=== PATIENT | male | born 1985 | race Two or more races ===

== ENCOUNTER 2017-11-21 20:13 | Emergency (ER) | payer SELFPAY ==
[~2017-11-21] VITALS: Ht 172.7 cm; Wt 68.0 kg
[2017-11-21] VITALS (9 sets, daily range): BP systolic 118–161; BP diastolic 45–92
[2017-11-21] MEDS ORDERED: NKM (20:17)
[2017-11-21] MEDS ORDERED: Morphine Sulfate 4mg/ml Inj IM ONE (20:30)
--- NOTE | 2017-11-21 20:31 | Emergency Room Report ---
History of Present Illness General Chief Complaint: Upper Extremity Injury Source: Patient Present Illness HPI 32-year-old male, presenting with right shoulder pain, after a fall. The complaining of severe pain to right shoulder. Cannot move right shoulder. No head trauma no LOC Allergies: Coded Allergies: No Known Allergies (Unverified , 11/21/17) Patient History Past Medical History: see triage record Past Surgical History: none Pertinent Family History: none Reviewed Nursing Documentation: PMH: Agreed, PSxH: Agreed Nursing Documentation-PMH Past Medical History: No Stated History Review of Systems All Other Systems: negative except mentioned in HPI Physical Exam Vital Signs Date Time Temp Pulse Resp B/P (MAP) Pulse Ox O2 Delivery O2 Flow Rate FiO2 11/21/17 20:14 98.1 74 16 147/87 97 Room Air Sp02 EP Interpretation: reviewed, normal General Appearance: alert, GCS 15, non-toxic, moderate distress Head: normocephalic, atraumatic Eyes: bilateral eye normal inspection, bilateral eye PERRL, bilateral eye EOMI ENT: normal ENT inspection, normal pharynx, normal voice, moist mucus membranes Neck: normal inspection, full range of motion, supple Respiratory: normal inspection, lungs clear, normal breath sounds, no respiratory distress, no retraction, no wheezing, speaking full sentences, chest symmetrical Cardiovascular #1: normal inspection, regular rate, rhythm, no edema, normal capillary refill Cardiovascular #2: 2+ radial (R), 2+ radial (L) Gastrointestinal: normal inspection, non tender, soft, non-distended, no guarding Genitourinary: no CVA tenderness Musculoskeletal: other - R shoulder TTP, humeral head palpated anteriorly. limited ROM Neurologic: normal inspection, alert, oriented x3, responsive, motor strength/ tone normal, sensory intact, normal gait, speech normal Psychiatric: normal inspection, judgement/insight normal, memory normal Skin: normal inspection, normal color, no rash, warm/dry, well hydrated, normal turgor Procedures Joint Reduction Joint Reduction : Consent: Written Joint Reduction Site: shoulder (R) Procedural Sedation: Yes Reduction Attempts: One Pre-Procedure NV Exam: Yes Post Joint Reduction Film: joint reduced Patient Tolerated: Well Complications: None Procedural Sedation Consent: Written Time out called at: 21:27 Pre-Sedation Assessment: Plan for Sedation Discuss Airway Assessment (Malampati): I Heart: normal Lungs: normal Abdomen: normal Extremities: normal Procedures/Plans: Closed Reduction Plan for Moderate Sedation: Other - ketamine ASA Score: I Start Time: 21:27 End Time: 21:33 Communication: No Apparent Limitation Mental Status: Awake Respiration: Unlabored Skin Condition: WNL Abdomen: WNL Nausea: NO Vomiting: NO Medical Decision Making Diagnostic Impression: Primary Impression: Shoulder dislocation ER Course 32-year-old male, right shoulder pain after fall DDX: Dislocation versus fracture Plan: Pain control, xr, reduction ER course: Lidocaine with intraarticular block used, pt still in pain Procedural sedation with ketamine reduction successful Disposition: Patient is to be discharged to home. Discharged home with shoulder immobilizer Patient is instructed to follow up with orthopedic surgery in one week Please note that this Emergency Department Report was dictated using [employer] technology software, occasionally this can lead to erroneous entry secondary to interpretation by the dictation equipment Xray: Right shoulder 3 view Complete Indication: Pain EP Interpretation: Yes Interpretation: +anterior disloc Impression: +ant dislocation Electronically signed by Trisha Carmona MD Xray: Right shoulder 3 view Complete Indication: Post Reduction EP Interpretation: Yes Interpretation: interval reduction Impression: reduction. no fx Electronically signed by Trisha Carmona MD Last Vital Signs Date Time Temp Pulse Resp B/P (MAP) Pulse Ox O2 Delivery O2 Flow Rate FiO2 11/21/17 20:14 98.1 74 16 147/87 97 Room Air Disposition: HOME, SELF-CARE Condition: Improved Patient Instructions: Shoulder Dislocation, [id number] Additional Instructions: PLEASE FOLLOW UP WITH ORTHOPEDIC SURGERY IN 1 WEEK Trisha Carmona M.D. Nov 21, 2017 20:31
[2017-11-21] MEDS ORDERED: Ketamine HCl 100mg syr IV ONE ×2 (21:15→21:45)
[2017-11-21] MEDS ORDERED: Morphine Sulfate 4mg/ml Inj IVP ONE (21:30)
[2017-11-22] MEDS ORDERED: Meclizine 25mg tab ONE (00:38)
[2017-11-22] MEDS ORDERED: Meclizine 25mg tab ORAL ONE (00:45)
[2017-11-22 01:01] VITALS: BP 131/72
[2017-11-22 01:58] VITALS: BP 144/92
[2017-11-22] MEDS ORDERED: IBUPROFEN600 MG ORAL (03:26)
[2017-11-22 04:13] VITALS: BP 132/82
[2017-11-22 04:18] LABS: HEMATOCRIT 46.3 % (42.0-52.0); HEMOGLOBIN 16.4 G/DL (14.2-18.0); MEAN CORPUSCULAR VOLUME 83 FL (80-99); PLATELET COUNT 247 K/UL (150-450); RED CELL DISTRIBUTION WIDTH 11.3 % (11.6-14.8); WHITE BLOOD COUNT 16.2 K/UL (4.8-10.8)
[2017-11-22 04:31] LABS: ANION GAP 14 mmol/L (5-15); BLOOD UREA NITROGEN 14 mg/dL (7-18); CARBON DIOXIDE 20 MMOL/L (21-32); CHLORIDE 104 MMOL/L (98-107); CREATININE 1.2 MG/DL (0.55-1.30); POTASSIUM 3.4 MMOL/L (3.5-5.1); SODIUM 138 MMOL/L (136-145)
[2017-11-22 04:35] LABS: ALANINE AMINOTRANSFERASE 41 U/L (12-78); ALBUMIN/GLOBULIN RATIO 1.1 (1.0-2.7); ALKALINE PHOSPHATASE 70 U/L (46-116); ASPARTATE AMINO TRANSFERASE 22 U/L (15-37); BILIRUBIN,TOTAL 0.4 MG/DL (0.2-1.0)
[2017-11-22 06:18] VITALS: BP 136/83
[2017-11-22 06:24] VITALS: BP 136/83
--- NOTE | 2017-11-22 09:09 | Diagnostic Imaging Report ---
Indication: Pain in right shoulder Technique: 2 views of the right shoulder Comparison: none Findings: There is an anterior dislocation of the right shoulder. No definite fracture deformity demonstrated. Impression: Positive for anterior right shoulder dislocation. Apparently recognized by the ED physician, as a subsequent post reduction radiograph is available
--- NOTE | 2017-11-22 10:20 | Diagnostic Imaging Report ---
Indication: Pain, status post reduction Technique: 2 views of the right shoulder Comparison: 1 1/2 hours earlier Findings: Interim satisfactory reduction of previously demonstrated right shoulder dislocation. No bony abnormality demonstrated Impression: Successful reduction of previously demonstrated right shoulder dislocation. No underlying acute bony trauma demonstrated
== END 2017-11-22 06:29 | disposition home or self-care (01) ==
LOC: EDBD 20:13 → EMR 20:30
DX: S43.084A Other dislocation of right shoulder joint, initial encounter (principal); W18.30XA Fall on same level, unspecified, initial encounter; Y92.9 Unspecified place or not applicable
CPT/HCPCS: 23650; 36415; 73020; 80053; 83690; 85025; 96361; 96372; 96374; 96375; 99284; J2270; J2405